=== PATIENT | female | born 1990 | race Hispanic/Latino ===

== ENCOUNTER 2016-06-30 07:03 | Day surgery (SDC) | payer OTHER ==
[2016-06-30 07:30] VITALS: BMI 20.4
[2016-06-30 07:51] VITALS: O2SAT 100
[2016-06-30] MEDS ORDERED: Propofol 10 mg/ml Inj (20 ML) ONE (08:20)
[2016-06-30] MEDS ORDERED: Lidocaine Hydrochloride 10 ML INJ ONE (08:44)
[2016-06-30 09:34] VITALS: BP 107/56; PULSE 71; RESP 14; TEMP 99
== END 2016-06-30 09:30 | disposition home or self-care (01) ==
LOC: C.ENDO 07:03
PROVIDERS: ATTEND Internal Medicine Gastroenterology
DX: R10.84 Generalized abdominal pain (principal); K44.9 Diaphragmatic hernia without obstruction or gangrene